=== PATIENT | male | born 1960 | race Caucasian/White ===

== ENCOUNTER 2020-11-11 08:36 | Outpatient (CLI) | payer MEDICARE, SELFPAY ==
--- NOTE | ~2020-11-11 | US_ITS ---
EXAMINATION: US art doppler w press LE DATE: 11/11/2020 10:26 INDICATION: Peripheral vascular disease, unspecified. TECHNIQUE: Segmental pressures and plethysmographic and Doppler waveforms of the brachial and lower e xtremity arteries were obtained. COMPARISON: None. FINDINGS: Right and left brachial artery pressures of 127 mm Hg and 112 mm Hg, respectively, are concordant (no rmal difference <= 30 mmHg). The right high-thigh pressure index is 1.28 (normal > 1.2). The right ankle-brachial index (KOJO) is 1 .16 (normal >= 0.9-1.0). The right great toe-brachial index (TBI) is 0.77 (normal >= 0.65). Arterial Doppler waveforms are at least triphasic in common femoral artery and superficial femoral artery and biphasic in popliteal artery and at the ankle. The left high-thigh pressure index is 1.16. The left KOJO is 1.12. The left TBI is 0.64. Arterial Dopp ler waveforms are at least triphasic in common femoral artery and superficial femoral artery and biph asic in popliteal artery and at the ankle. IMPRESSION: 1. Borderline decreased left TBI and normal left KOJO, consistent with left-sided arterial occlusive d isease. 2. Normal right-sided KOJO and TBI. No significant right-sided arterial occlusive disease. Reviewed, dictated and finalized at location B. IMPRESSION: 1. Borderline decreased left TBI and normal left KOJO, consistent with left-side d arterial occlusive disease. 2. Normal right-sided KOJO and TBI. No significant right-sided arterial occlusiv e disease.
== END 2020-11-11 08:37 | disposition home or self-care (01) ==
PROVIDERS: PCP Family Medicine; Visit Provider Family Medicine
DX: I73.9 Peripheral vascular disease, unspecified (principal)
CPT/HCPCS: 93923

== ENCOUNTER 2024-05-05 13:05 | Outpatient (CLI) | payer MEDICARE, SELFPAY ==
--- NOTE | ~2024-05-05 | XR_ITS ---
Right Hand Technique: PA, oblique, and lateral views were obtained. Clinical History: Pain Findings: No acute fracture or dislocation is seen. Osseous alignment is anatomic. There is advanced degenerative change of the first CMC joint. There is mild degenerative change of the interphalangeal joint of the thumb. There is moderate degenerative change of the second MCP joint.. Soft tissues are unremarkable. Impression: Degenerative changes, as above. Reviewed, dictated and finalized at location M. Impression: Degenerative changes, as above.
== END 2024-05-05 13:06 | disposition home or self-care (01) ==
LOC: ANHIMG 13:06
PROVIDERS: PCP Family Medicine; Visit Provider Family Medicine
DX: M19.041 Primary osteoarthritis, right hand (principal)
CPT/HCPCS: 73130

== ENCOUNTER 2024-05-18 09:57 | Outpatient (RCR) | payer MEDICARE, SELFPAY ==
--- NOTE | 2024-05-18 10:49 | OTOPEVAL1 ---
Assessment and note entered by Ahmet Spaulding, JOSH/Neil, CHT Evaluation Information Assessment Status Evaluation Diagnosis Pain in joints of right hand Subjective Information Patient reports experiencing pain in his right index finger for about a year. He reports the finger will get stuck in flexion and he sometimes has to use his other hand to pull it open and this is painful. He describes similar symptoms in the ring and small fingers also. 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 He is right handed. Reported Pain Level Pain Score 4/10, right index finger. Patient does experience times of 0/10. Sharp increase in pain with the finger gets stuck . Assessment OT Clinical Summary Patient referred to OT with hand pain. Signs and symptoms are consistent with trigger finger of the index finger. Issued tendon gliding HEP as well as a custom PIP immobilization orthotic. He demonstrates excellent understanding of all materials. Continued follow up recommended for use of modalities, splinting needs, manual therapy, and HEP progression. Plan of Care Interventions Therapeutic Exercise,Manual Therapy,Therapeutic Activities,Hot Pack/Cold Pack,Check Out for Orthotic/Pr,Ultrasound,Paraffin OT Services Indicated Yes Treatment Frequency and 1x/week for 5 visits Duration These treatments will address the objective and functional deficits as defined above. The patient will be advanced safely and appropriately in order for the patient to progress towards his/her prior level of function. Additional exercises will be introduced and as well as a comprehensive home exercise program upon discharge, if needed, ?to ensure carryover of functional gains achieved in the clinic. This treatment plan has been reviewed and agreement upon by the patient.
--- NOTE | 2024-05-18 10:51 | OPREHPOC ---
Outpatient Therapy Plan of Care This is a Multidisciplinary Plan of Care that may contain components documented by all disciplines (PT, OT, and ST.) OT Problem 1 OT Problem #1 Knowledge Deficit OT Goal 1 Goal / Goal Update 1. Patient to be independent with instructed materials. Target Visit 5 OT Problem 2 OT Problem #2 Pain OT Goal 1 Goal / Goal Update 1. Patient to report no pain with ADLs. Target Visit 5 OT Problem 3 OT Problem #3 Impaired Flexibility OT Goal 1 Goal / Goal Update 1. Patient to be able to perform tendon glide HEP without evidence of triggering in the right hand. Target Visit 5 OT Problem 4 OT Problem #4 Impaired Strength OT Goal 1 Goal / Goal Update 1. Patient to be able to progress to patient service specialist and pinch strengthening with vivas putty without triggering. Target Visit 5
--- NOTE | 2024-06-06 15:09 | OTOPDC ---
Assessment and note entered by Ahmet Spaulding, JOSH/Neil, CHT OT Discharge Notification 06/06/24 OT Clinical Summary Patient referred to OT with hand pain. Signs and symptoms are consistent with trigger finger of the index finger. Issued tendon gliding HEP as well as a custom PIP immobilization orthotic. Continued follow up was recommended. Patient called to state he didn't feel like he needed to come back and requested to be discharged. D/C OT at this time per patient request. The goals were not met.
== END 2024-06-06 15:48 | disposition home or self-care (01) ==
LOC: ANHGOSHOT 09:57
PROVIDERS: PCP Family Medicine; Visit Provider Family Medicine
DX: M25.541 Pain in joints of right hand (principal)
CPT/HCPCS: 97110; 97165; L3933

== ENCOUNTER 2025-05-03 09:44 | Outpatient (CLI) | payer MEDICARE, SELFPAY ==
[2025-05-03 11:14] LABS: Hematocrit 46.5 % (42.0-52.0); Hemoglobin 16.1 g/dL (14.0-18.0); Immature Granulocyte Percent A 0.3 % (0-0.5); Lymphocytes Absolute Auto 1.43 K/mm3 (0.9-3.2); Mean Corpuscular HGB Conc 34.6 g/dl (32-36); Mean Corpuscular Hemoglobin 31.1 pg (26-34); Mean Corpuscular Volume 89.9 fl (80-100); Nucleated Red Blood Cells Absolute Auto 0.000 K/mm3 (0.0-0.012); Nucleated Red Blood Cells Perc 0.0 % (0.0-0.2); Platelet Count Result 179 k/mm3 (150-375); Red Blood Count 5.17 M/mm3 (4.6-6.20); White Blood Count 6.0 K/mm3 (4.5-10.0)
[2025-05-03 11:24] LABS: Hemoglobin A1C 5.1 % (<5.7)
[2025-05-03 11:25] LABS: Alanine Aminotransferase 96 U/L (6-50); Albumin Level 4.2 g/dL (3.5-5.1); Alkaline Phosphatase 67 U/L (38-126); Anion Gap 8 mmol/L (4-12); Aspartate Amino Transferase 79 U/L (17-59); Bilirubin,Total 0.8 mg/dL (0.2-1.3); Blood Urea Nitrogen 15 mg/dL (9-20); Calcium 9.3 mg/dL (8.4-10.2); Carbon Dioxide 27 mmol/L (22-30); Chloride 103 mmol/L (98-107); Cholesterol 119 mg/dL (0-200); Estimated Glomerular Filt Rate > 60; Glucose 97 mg/dL (65-110); HDL Direct 43 mg/dL; Potassium 4.3 mmol/L (3.4-5.0); Sodium 138 mmol/L (137-145); Total Protein 7.2 g/dL (6.3-8.2); Triglycerides 62 mg/dL (<150)
[2025-05-03 11:50] LABS: Thyroid Stimulating Hormone Reflex 5.430 uIU/mL (0.465-4.68)
[2025-05-03 12:01] LABS: Prostate Specific Antigen 1.4 ng/mL (< OR = 4.0)
[2025-05-03 12:20] LABS: Vitamin B12 793.0 pg/mL (239-931)
[2025-05-03 17:35] LABS: Free T4 Free Thyroxine Reflex 1.42 ng/dL (0.78-2.19)
[2025-05-03 18:14] LABS: Total Triiodothyronine (T3) 1.25 NG/ML (0.82-1.58)
== END 2025-05-03 09:45 | disposition home or self-care (01) ==
LOC: ANHGOSHLAB 09:45
PROVIDERS: PCP Family Medicine; Visit Provider Family Medicine
DX: R73.9 Hyperglycemia, unspecified (principal); Z12.5 Encounter for screening for malignant neoplasm of prostate; I10 Essential (primary) hypertension; E78.5 Hyperlipidemia, unspecified; E53.8 Deficiency of other specified B group vitamins; E55.9 Vitamin D deficiency, unspecified
CPT/HCPCS: 36415; 80053; 80061; 82306; 82607; 83036; 84153; 84439; 84443; 84480; 85025; G0103

== ENCOUNTER 2025-06-20 11:01 | Outpatient (CLI) | payer MEDICARE, SELFPAY ==
[2025-06-20 13:14] LABS: Alanine Aminotransferase 66 U/L (6-50); Albumin Level 4.1 g/dL (3.5-5.1); Alkaline Phosphatase 61 U/L (38-126); Anion Gap 4 mmol/L (4-12); Aspartate Amino Transferase 55 U/L (17-59); Bilirubin,Total 0.6 mg/dL (0.2-1.3); Blood Urea Nitrogen 13 mg/dL (9-20); Calcium 9.4 mg/dL (8.4-10.2); Carbon Dioxide 29 mmol/L (22-30); Chloride 104 mmol/L (98-107); Estimated Glomerular Filt Rate > 60; Glucose 107 mg/dL (65-110); Potassium 4.5 mmol/L (3.4-5.0); Sodium 137 mmol/L (137-145); Total Protein 6.9 g/dL (6.3-8.2)
[2025-06-20 13:32] LABS: Thyroid Stimulating Hormone Reflex 3.610 uIU/mL (0.465-4.68)
== END 2025-06-20 11:02 | disposition home or self-care (01) ==
PROVIDERS: PCP Family Medicine; Visit Provider Family Medicine
DX: R74.8 Abnormal levels of other serum enzymes (principal); I10 Essential (primary) hypertension; E03.9 Hypothyroidism, unspecified
CPT/HCPCS: 36415; 80053; 84443